=== PATIENT | female | born 1950 | race Caucasian/White ===

== ENCOUNTER 2018-09-14 13:50 | Emergency (ER) | payer OTHER, SELFPAY ==
[2018-09-14 13:56] VITALS: BP 108/56; PULSE 67; RESP 15; TEMP 36.7; O2SAT 99; BMI 21.9
--- NOTE | 2018-09-14 13:58 | DI.RAD.S_ITS ---
PROCEDURE: XR FOOT RT MIN 3V INDICATIONS: rolled ankle,c/o right foot pain TECHNIQUE: 3 views of the foot were acquired. COMPARISON: None. FINDINGS: Bones: No dislocations. No suspicious bony lesions. There is a transverse fracture across the base of the fifth metatarsal, intra-articular fracture extension Soft tissues: No tibiotalar joint effusion. Achilles tendon appears normal. IMPRESSION: Minimally displaced fracture that is intra-articular at the base of the fifth metatarsal bone. Dictated by: Sumit Murray M.D. on 09/14/2018 at 14:23 Approved by: Sumit Murray M.D. on 09/14/2018 at 14:45
--- NOTE | 2018-09-14 15:31 | ED_ITS ---
HPI - Extremity Injury (Lower) <DAWN Vu - Last Filed: 09/14/18 23:12> General Chief Complaint: Extremity Injury, Lower Stated Complaint: hurt her right foot Time Seen by Provider: 09/14/18 15:06 Source: patient Mode of arrival: ambulatory Limitations: no limitations History of Present Illness HPI Narrative: 68-year-old healthy female, presents to the emergency department today after tripping on a step and landing on her work shoes now complains of right lateral foot pain and swelling. At first she was able to bear weight on the foot and then after an hour or so the pain increased and she was not able to put weight on it. Pain is a 3/10 and is constant and aching in nature. Denies previous injury to that foot, numbness, tingling, loss of range of motion, calf pain, chest pain, abdominal pain, nausea, vomiting,, fevers, chills. MD complaint: foot injury Onset (ago): hour(s) Type of Injury: inversion Place: home Severity: moderate Severity scale (1-10): 3 Relieving factors: nothing Exacerbating factors: weight bearing Context: walking Associated symptoms: swelling Other symptoms: none Related Data Home Medications Medication Instructions Recorded Confirmed brimonidine 09/14/18 dorzolamide-timolol 09/14/18 09/14/18 ketorolac 09/14/18 09/14/18 latanoprost 09/14/18 09/14/18 Previous Rx's Medication Instructions Recorded tramadol 50 mg PO BID PRN #10 tab 09/14/18 Allergies Allergy/AdvReac Type Severity Reaction Status Date / Time No Known Drug Allergies Allergy Verified 09/14/18 13:55 Review of Systems <DAWN Vu - Last Filed: 09/14/18 23:12> Review of Systems REVIEW OF SYSTEMS: GENERAL: Denies fever or chills. HENT: No head trauma, hearing loss or sore throat. EYES: No loss of vision, double vision, eye pain, or irritation. CARDIOVASCULAR: No chest pain or syncope. RESPIRATORY: No shortness of breath or cough. GASTROINTESTINAL: No nausea, vomiting, diarrhea, or constipation. GENITOURINARY: No flank pain or dysuria. MUSCULOSKELETAL: Foot pain, see HPI. INTEGUMENTARY: No rash, lesions, or pruritus. NEURO: No numbness, tingling, memory loss, or confusion. PSYCH: No behavior or mood changes. PFSH <DAWN Vu - Last Filed: 09/14/18 23:12> Medical History No significant medical problems (Acute) Social History (Updated 09/14/18 @ 23:07 by DAWN Vu) Smoking Status: Never smoker Social History Smoking Status: Never smoker Exam <DAWN Vu - Last Filed: 09/14/18 23:12> Initial Vital Signs Initial Vital Signs: Vital Signs Temperature 98.1 F 09/14/18 13:56 Pulse Rate 67 09/14/18 13:56 Respiratory Rate 15 09/14/18 13:56 Blood Pressure 108/56 L 09/14/18 13:56 Pulse Oximetry 99 09/14/18 13:56 PHYSICAL EXAMINATION: GENERAL: Well groomed, alert, and cooperative Answers questions promptly and appropriately. Vital signs noted. HENT: Normocephalic, atraumatic. Ear canals patent. Oral mucosa is pink and moist. EYES: PERRLA, EOMIs, conjunctiva pink, sclera white, no periorbital swelling. NECK: Full range of motion. CHEST: Normal to inspection and without deformities. CARDIOVASCULAR: S1 and S2 sounds normal. Regular rate and rhythm, no murmurs, clicks, or bruits. No pedal edema. RESPIRATORY: Normal respiratory rate, trachea midline, airway patent. No stridor, nasal flaring or accessory muscle use. Lungs are clear in all pedro without wheeze, rhonchi, or crackles. GASTROINTESTINAL: Bowel sounds normoactive. Abdomen is soft and non-tender. No organomegaly. MUSCULOSKELETAL: Normal gait and coordination. Equal tone and mass bilaterally. No spinal tenderness. EXTREMITIES: 1+ diffuse swelling and ecchymosis to right lateral foot. Tenderness to lateral aspect of foot with palpation, tenderness to lateral malleolus. Limited range of motion due to pain. Able to move all toes, sensation intact. CMS intact. Full range of motion and 5/5 strength to upper and lower extremities SKIN: Warm, dry, soft, appropriate color for ethnicity. No lesions, rashes, or wounds. NEURO: Alert and Oriented X 3. Good coordination. No ataxia, or sensory deficits, or cognitive issues. PSYCH: Appropriate affect and mood. <Lilliam Hernandez MD - Last Filed: 09/18/18 07:08> Initial Vital Signs Initial Vital Signs: Vital Signs Temperature 98.1 F 09/14/18 13:56 Pulse Rate 67 09/14/18 13:56 Respiratory Rate 15 09/14/18 13:56 Blood Pressure 108/56 L 09/14/18 13:56 Pulse Oximetry 99 09/14/18 13:56 Course <DAWN Vu - Last Filed: 09/14/18 23:12> Orders Ordered: ED Orders 09/14/18 13:58 XR foot RT min 3V Stat Consultations Consultation #1: Patient was staffed with Dr. Hernandez who agrees with plan of care. Vital Signs - 8 hr 09/14/18 16:24 09/14/18 16:32 Pulse Rate 59 L 64 Respiratory Rate 16 20 Blood Pressure 155/77 H Blood Pressure [Right Arm] 155/77 H Pulse Oximetry 98 100 <Lilliam Hernandez MD - Last Filed: 09/18/18 07:08> Orders Ordered: ED Orders 09/14/18 13:58 XR foot RT min 3V Stat Vital Signs - 8 hr 09/14/18 16:24 09/14/18 16:32 Pulse Rate 59 L 64 Respiratory Rate 16 20 Blood Pressure 155/77 H Blood Pressure [Right Arm] 155/77 H Pulse Oximetry 98 100 MDM - Extremity Injury (Lower) <DAWN Vu - Last Filed: 09/14/18 23:12> Medical Records Attestation: I reviewed the patient's medical records. Lab Data Attestation: I reviewed the patient's lab results. Imaging Data Right foot: Radiologist's impression: [address] [place] [id number] XRay Report Signed Patient: Basia March#: [id number] : 8Acct:[id number] Age/Sex: 68 / FDate of Service: 09/14/18 Loc: ED Accession Number: [id number] Procedure: XR foot RT min 3V Ordering Provider: Lilliam Hernandez MD PROCEDURE: XR FOOT RT MIN 3V INDICATIONS: rolled ankle,c/o right foot pain TECHNIQUE: 3 views of the foot were acquired. COMPARISON: None. FINDINGS: Bones: No dislocations. No suspicious bony lesions. There is a transverse fracture across the base of the fifth metatarsal, intra-articular fracture extension Soft tissues: No tibiotalar joint effusion. Achilles tendon appears normal. IMPRESSION: Minimally displaced fracture that is intra-articular at the base of the fifth metatarsal bone. Dictated by: Sumit Murray M.D. on 09/14/2018 at 14:23 Approved by: Sumit Murray M.D. on 09/14/2018 at 14:45 [facility] Narrative Medical decision making narrative: Fifth metatarsal Fracture, as indicated on x- ray was splinted with a posterior splint and patient was instructed to remain non-weightbearing on the foot until follow-up. Splint was checked after application and CMS intact. Walker given to patient as requested, prescription given for a knee scooter as requested. Follow-up instructions discussed, return precautions given. Discharge Plan Departure Patient Disposition: Home Clinical Impression: Foot fracture, right Qualifiers: Encounter type: initial encounter Fracture type: closed Qualified Code(s): S92.901A - Unspecified fracture of right foot, initial encounter for closed fracture Discharge Date/Time: 09/14/18 16:33 Interventions: ED Discharge Assessment Last Done: 09/14/18 16:32 Instructions: DI for Foot Fracture Activity Restrictions/Additional Instructions: Thank you for entrusting me with your care today. As discussed, x-ray shows a fracture to her right foot, did have placed you in a splint, please leave this on until you see an orthopedic. Please use the walker to stay off of her foot, do not put any weight on. As you preferred, you can use Tylenol for pain. Elevate her leg when you're sitting. Please return if you have significant increasing pain, discoloration in your toes, shortness of breath, or chest pain. Follow-up with an orthopedic in the next few days. Tramadol was added to your prescriptions as requested, do not drive with this medication. Prescriptions: New tramadol 50 mg tablet 50 mg PO BID PRN (Reason: pain) Qty: 10 RF: 0 No Action latanoprost 0.005 % drops RF: 0 ketorolac 0.5 % drops RF: 0 brimonidine 0.2 % drops RF: 0 dorzolamide-timolol 22.3-6.8 mg/mL drops RF: 0 Referrals: Diogo Aragon MD [Physician] - (Fracture to the base of right 5th metatarsal. )
[2018-09-14 16:24] VITALS: BP 155/77; PULSE 59; RESP 16; O2SAT 98
[2018-09-14 16:32] VITALS: BP 155/77; PULSE 64; RESP 20; O2SAT 100
== END 2018-09-14 16:33 | disposition home or self-care (01) ==
PROVIDERS: Emergency Provider Nurse Practitioner
DX: S92.901A Unspecified fracture of right foot, initial encounter for closed fracture (principal); W18.49XA Other slipping, tripping and stumbling without falling, initial encounter
CPT/HCPCS: 29515; 73630; 99283